=== PATIENT | female | born 1990 | race American Indian/Alaskan Native ===

== ENCOUNTER 2021-11-29 07:05 | Day surgery (SDC) | payer MEDICAID ==
[~2021-11-29 07:05] MED LIST: SODIUM CHLORIDE 0.9% 1000 ML 1,000 ML IV SCH
--- NOTE | 2021-11-29 07:53 | Anesthesia Consultation ---
Anesthesia Consult and Med Hx - Airway Anesthetic Teeth Evaluation: Good ROM Head & Neck: Adequate Mental/Hyoid Distance: Adequate Mallampati Class: Class II Intubation Access Assessment: Probably Good - Pulmonary Exam CTA: Yes - Cardiac Exam Cardiac Exam: RRR - Pre-Operative Health Status ASA Pre-Surgery Classification: ASA2 Proposed Anesthetic Plan: MAC - Pulmonary Hx Smoking: No Hx Asthma: No Hx Respiratory Symptoms: No Hx Sleep Apnea: Yes - Cardiovascular System Hx Hypertension: Yes Hx Heart Attack/AMI: No - Central Nervous System Hx Neuromuscular Disorder: No Hx Back Pain: Yes - Gastrointestinal Hx Ulcer: No Hx Gastroesophageal Reflux Disease: Yes - Endocrine Hx Renal Disease: No Hx Liver Disease: No Hx Non-Insulin Dependent Diabetes: No Hx Thyroid Disease: No - Hematic Hx Anemia: No Hx Sickle Cell Disease: No - Other Systems Hx Alcohol Use: No Hx Substance Use: No Hx Cancer: No Hx Obesity: Yes (BMI 46) - Additional Comments Anesthesia Medical History Comments: no hx of anesthesia complications
--- NOTE | 2021-11-29 07:54 | Anesthesia Day of Surgery ---
Anesthesia Day of Surgery - Day of Surgery Patient Examined: Yes Patient H&P Reviewed: Yes Patient is NPO: Yes
--- NOTE | 2021-11-29 08:32 | Discharge Summary ---
Providers - Providers Date of Admission: 11/29/2021 Date of discharge: 11/29/21 Attending physician: JOSÉ MIGUEL GUERIN MD Primary care physician: [facility] Hospitalization Reason for admission: pre-op egd Condition: Good Procedures: egd with bx Hospital course: Pt presented for a pre-op EGD as part of planning for up coming bariatric surgery. Procedure was uneventful and pt recovered well and was discharged to home. Disposition: 01 HOME / SELF CARE / HOMELESS Final Discharge Diagnosis (Prints w/discharge instructions): gerd, morbid obesity Core Measure Documentation - Palliative Care Palliative Care/ Comfort Measures: Not Applicable - Core Measures Any of the following diagnoses?: none Exam - Physical Exam Narrative exam: unchanged from pre-op exam Plan Activity: advance as tolerated Diet: low carbohydrate Follow up with: [facility] MD [Primary Care Provider] - 7 Days
--- NOTE | 2021-11-29 08:32 | Operative Report ---
Operative Report Operative Report: DATE: 11/29/2021 SURGERY: Upper endoscopy. SURGEON: Thu Gallagher M.D. PROCEDURE: EGD with biopsy PRE OP DX: morbid obesity, GERD POST OP DX: morbid obesity, GERD TYPE OF ANESTHESIA: MAC. ESTIMATED BLOOD LOSS: None. COMPLICATIONS: None. SPECIMENS REMOVED: antral biopsy FINDINGS: 1. Small hiatal hernia. 2. distal esophagitis 3. peptic ulcer disease INDICATIONS:INDICATION FOR PROCEDURE: Patient is a 31-year-old female with a long history of morbid obesity. She is planned to have a weight loss procedure and is here for preoperative planning EGD. PROCEDURE DETAILS: After consent was reviewed, patient was taken back to the operating room where patient was placed in the left lateral decubitus position and a bite block was placed in the mouth. After a time-out was called, MAC anesthesia was initiated. I then passed the endoscope into her oropharynx, into her esophagus, visualized the entire esophagus, which was all within normal limits with the exception of distal esophagitis. Z-line was noted to about 35cm from incisors. I then visualized the stomach and the first portion of the duodenum. There was noted to be small shallow mucosal ulcerations at the antrum consistent with peptic ulcer disease. A cold forceps biopsy of the antrum was taken and will be sent to pathology to evaluate for H.pylori. I then retroflexed the scope in the stomach and visualized the hiatus and I could see a small hiatal hernia. I then desufflated the stomach and removed the endoscope. Patient tolerated procedure well and was transferred to recovery room in good and stable condition.
[2021-11-29] MEDS ORDERED: LIDOCAINE MPF (2%) 20 MG/1 ML VIAL 5 ML ONE (09:22)
[2021-11-29] MEDS ORDERED: propofoL 200 MG/20 ML VIAL IV ONE (09:22)
[2021-11-29] MEDS ORDERED: SUCRALFATE 1 GM/10 ML ORAL LIQD PO STA (09:35)
[2021-11-29 15:10] VITALS: BP 118/73
--- NOTE | 2021-11-29 15:48 | Post Anesthesia Evaluation ---
- Post Anesthesia Evaluation Patient Participated: Yes Airway Patent: Yes Stable Respiratory Function: Yes Nausea/Vomiting: No Temp > 96.8F: Yes Pain Manageable: Yes Adequeate Hydration: Yes Anesthesia Complications: No Block Receding Appropriately: Not Applicable Patient on Ventilator: No
== END 2021-11-29 10:30 | disposition home or self-care (01) ==
LOC: GIO 07:05
PROVIDERS: ATTEND Surgery
DX: E66.01 Morbid (severe) obesity due to excess calories (principal); K30 Functional dyspepsia; K21.00 Gastro-esophageal reflux disease with esophagitis, without bleeding; K29.50 Unspecified chronic gastritis without bleeding; K44.9 Diaphragmatic hernia without obstruction or gangrene; K31.89 Other diseases of stomach and duodenum; G47.30 Sleep apnea, unspecified; I10 Essential (primary) hypertension; Z79.899 Other long term (current) drug therapy; Z68.42 Body mass index [BMI] 45.0-49.9, adult
CPT/HCPCS: 43239; 81025; 88305; 88342; J2704; J3490; J7030; J7120; Q0162

== ENCOUNTER 2022-07-17 08:48 | Outpatient (CLI) | payer MEDICAID ==
[2022-07-17 09:16] VITALS: BP 119/71
[2022-07-17 09:46] LABS: Bacteria,Urine 1+ /HPF (Negative); Hyaline Casts,Urine 1 /LPF; Mucus,Urine 3+ /HPF
[2022-07-17 09:48] LABS: Color,Urine Yellow (Yellow)
[2022-07-17] MEDS ORDERED: ACETAMINOPHEN 500 MG TAB PO SCH (10:00)
[2022-07-17] MEDS ORDERED: LACTATED RINGERS 500 ML IV ONE (10:00)
[2022-07-17] MEDS ORDERED: LACTATED RINGERS 1,000 ML IV SCH (10:00)
--- NOTE | 2022-07-17 12:19 | Ultrasound Report ---
ULTRASOUND OBSTETRIC LIMITED INDICATION / CLINICAL INFORMATION: Cervical length. - Clinical Gestational Age (GA) in weeks, days: 20, 1 TECHNIQUE: Transabdominal. COMPARISON: Ultrasound dated 04/11/2022 FINDINGS: HEART RATE (beats per minute): 129 AMNIOTIC FLUID INDEX (cm) not measured but subjectively normal. PRESENTATION: Cephalic. ADDITIONAL FINDINGS: Cervix length measures 4.3 cm. IMPRESSION: 1. No significant abnormality. Cervical length 4.3 cm. Signer Name: Gael Ochoa MD Signed: 07/17/2022 12:15 PM Workstation Name: [email or web address]
--- NOTE | 2022-07-18 07:33 | Ultrasound Report ---
See combined report Signer Name: Raphael Obrien MD Signed: 07/18/2022 7:28 AM Workstation Name: [id number]
== END 2022-07-17 11:24 | disposition home or self-care (01) ==
LOC: TRG 08:48 → APU 08:50 → TRG 11:24
PROVIDERS: ATTEND Obstetrics & Gynecology
DX: O26.892 Other specified pregnancy related conditions, second trimester (principal); E86.0 Dehydration; R10.2 Pelvic and perineal pain; O13.2 Gestational [pregnancy-induced] hypertension without significant proteinuria, second trimester; O99.352 Diseases of the nervous system complicating pregnancy, second trimester; G43.909 Migraine, unspecified, not intractable, without status migrainosus; O36.5920 Maternal care for other known or suspected poor fetal growth, second trimester, not applicable or unspecified; O99.212 Obesity complicating pregnancy, second trimester; E66.01 Morbid (severe) obesity due to excess calories; O99.612 Diseases of the digestive system complicating pregnancy, second trimester; K21.9 Gastro-esophageal reflux disease without esophagitis; Z3A.20 20 weeks gestation of pregnancy
CPT/HCPCS: 59025; 76815; 76817; 81001; 96360; 96361; J7120